=== PATIENT | male | born 1930 | race Caucasian/White ===

== ENCOUNTER 2018-07-25 05:08 | Inpatient (IN) | payer MEDICARE ==
--- NOTE | 2018-07-22 11:24 | Diagnostic Imaging Report ---
EXAMINATION: CHEST 2 VIEWS INDICATION: Pre-op COMPARISON: None FINDINGS: TUBES and LINES: None. LUNGS: Low lung volumes which decreases sensitivity and specificity for pathology. There is perihilar fullness and indistinctness of the pulmonary vasculature, left greater than right. No evidence of lobar consolidation. PLEURA: No pleural effusion or pneumothorax. HEART AND MEDIASTINUM: The cardiomediastinal silhouette is unremarkable. Status post CABG. BONES AND SOFT TISSUES: No acute osseous abnormality. Partially seen cervical spine fixation hardware. Status post median sternotomy. UPPER ABDOMEN: No free air under the diaphragm. IMPRESSION: Low lung volumes with possible mild pulmonary interstitial edema, asymmetric to the left. Signed by: Dr. Nemo Alaniz MD on 07/22/2018 11:21 AM
[2018-07-22 11:36] LABS: BASOPHILS # (AUTO) 0.1 (0.0-0.1); BASOPHILS % 0.6 % (0.0-1.0); EOSINOPHILS # (AUTO) 0.3 (0.0-0.4); EOSINOPHILS % 3.2 % (0.0-6.0); HEMATOCRIT 41.2 % (38.2-49.6); HEMOGLOBIN 13.6 g/dL (14.0-18.0); LYMPHOCYTES # (AUTO) 2.5 (1.0-3.2); LYMPHOCYTES % 26.2 % (18.0-39.1); MEAN CORPUSCULAR HEMOGLOBIN 31.4 pg (28-32); MEAN CORPUSCULAR VOLUME 95.2 fL (81-99); MONOCYTES # (AUTO) 0.9 (0.2-0.8); MONOCYTES % 9.4 % (4.4-11.3); NEUTROPHILS # (AUTO) 5.7 (2.1-6.9); NEUTROPHILS % 60.3 % (38.7-80.0); PLATELET COUNT 212 x10e3/uL (140-360); RED BLOOD COUNT 4.33 x10e6/uL (4.3-5.7); RED CELL DISTRIBUTION WIDTH 14.4 % (11.7-14.4)
[2018-07-22 11:50] LABS: ANION GAP 16.3 mmol/L (8-16); BLOOD UREA NITROGEN 19 mg/dL (7-26); BUN/CREATININE RATIO 21 (6-25); CALCIUM 9.8 mg/dL (8.4-10.2); CARBON DIOXIDE 31 mmol/L (22-29); CHLORIDE 100 mmol/L (98-107); CREATININE, SERUM 0.91 mg/dL (0.72-1.25); EST GLOMERULAR FILTRATION RATE > 60 ML/MIN (60-); GLUCOSE 76 mg/dL (74-118); POTASSIUM 5.3 mmol/L (3.5-5.1); SODIUM 142 mmol/L (136-145)
[~2018-07-25] VITALS: Ht 177.8 cm; Wt 102.6 kg
[~2018-07-25 05:08] MED LIST: ADVIL200 MG PO; ALEVE220 MG PO; AMLODIPINE BESYL5 MG PO; ASPIR 8181 MG PO; CALTRATE 600 W1 EACH PO; CENTRUM SILVER1 EAC2 PO; CENTRUM SILVER1 EAC3 PO; CLONAZEPAM0.5 MG PO; CLONAZEPAM1 MG PO; CYMBALTA30 MG PO; ECOTRIN325 MG PO; EFFEXOR XR150 MG PO; FISH OIL PO; LASIX20 MG PO; LIPITOR40 MG PO; LYRICA200 MG PO; MILK OF MA2400 MG/10 PO; MULTIVITAMINS1 EAC8 PO; NORVASC5 MG PO; TURMERIC1 GM PO; TYLENOL PO; ULTRAM 50MG50 MG PO; VENLAFAXINE HCL75 MG PO; VITAMIN B-121000 MCG PO; hydrocodone
--- OUTSIDE RECORDS SUMMARY | 2018-07-25 05:11 | XMS REPORT ---
Author Author [facility] Address Unknown Phone Unavailable Care Team Providers Care Vp Software Name Role Phone ASAD LAMBERT Unavailable Unavailable Problems This patient has no known problems. Allergies, Adverse Reactions, Alerts This patient has no known allergies or adverse reactions. Medications This patient has no known medications. Results Test Description Test Time Test Comments Text Results Atomic Results Result Comments CHEST 2 VIEWS 2018-07-22 11:19:00 [place] [address] Patient Name: ABIGAIL PRITCHETT MR #: [id number] : 1930 Age/Sex: 87/M Req #: [id number] Adm Physician: Ordered by: ASAD LAMBERT MD Report #: [id number] Location: OR Room/Bed: Procedure: [id number] DX/CHEST 2 VIEWS Exam Date: 07/22/18 Exam Time: 1045 REPORT STATUS: Signed EXAMINATION: CHEST 2 VIEWS INDICATION: Pre-op COMPARISON: None FINDINGS: TUBES and LINES: None. LUNGS: Low lung volumes which decreases sensitivity and specificity for pathology. There is perihilar fullness and indistinctness of the pulmonary vasculature, left greater than right. No evidence of lobar consolidation. PLEURA: No pleural effusion or pneumothorax. HEART AND MEDIASTINUM: The cardiomediastinal silhouette is unremarkable. Status post CABG. BONES AND SOFT TISSUES: No acute osseous abnormality. Partially seen cervical spine fixation hardware. Status post median sternotomy. UPPER ABDOMEN: No free air under the diaphragm. IMPRESSION: Low lung volumes with possible mild pulmonary interstitial edema, asymmetric to the left. Signed by: Dr. Hansel Park MD on 07/22/2018 11:21 AM Dictated By: HANSEL PARK MD 20 Transcribed By: KIRK on 07/22/181120 COPY TO: ASAD LAMBERT MD CHEST 2 VIEWS [place] [address] Patient Name: ABIGAIL PRITCHETT MR #: [id number] : 1930 Age/Sex: 86/M Req #: [id number] Adm Physician: Ordered by: ASAD LAMBERT MD Report #: [id number] Location: OR Room/Bed: Procedure: [id number] DX/CHEST 2 VIEWS Exam Date: 04/09/17 Exam Time: 1135 REPORT STATUS: Signed PROCEDURE: Frontal and lateral views of the chest. COMPARISON: Chest x-ray 12/13/2008. INDICATIONS: PRE-OP, HIP INJECTIONE. DENIES LUNG COMPLAINTS FINDINGS: Lines/tubes: Medium sternotomy wires and mediastinal clips are unchanged. Lungs: Lungs are hypoinflated with bibasilar atelectasis. There is no evidence of pneumonia or pulmonary edema. Pleura: There is no pleural effusion or pneumothorax. Heart and mediastinum: The heart and the mediastinum are normal. Bones: No acute bony abnormality. Anterior cervical fusion plate is present. IMPRESSION: Hypoinflated lungs with bibasilar atelectasis. No acute cardiopulmonary disease. Dictated by: Radha Peace M.D. on 04/09/2017 at 13:01 Electronically approved by: Radha Peace M.D. on 04/09/2017 at 13:01 Dictated By: RADHA PEACE MD 1301 Transcribed By: CORRINE on 04/09/17 1301 COPY TO: ASAD LAMBERT MD
[2018-07-25] MEDS ORDERED: CELECOXIB 200 MG CAP ONE (06:21)
[2018-07-25] MEDS ORDERED: DEXAMETHASONE SOD PHOS 10 MG/1 ML VIAL ONE (06:21)
[2018-07-25] MEDS ORDERED: GABAPENTIN 300 MG CAP ONE (06:22)
[2018-07-25] MEDS ORDERED: TRANEXAMIC ACID 1,000 MG/10 ML ML ONE (06:43)
[2018-07-25] MEDS ORDERED: BACITRACIN 50,000 UNIT VIAL ONE (06:43)
[2018-07-25] MEDS ORDERED: SODIUM CHLORIDE 0.9% 500ML 500 ML ONE (06:58)
[2018-07-25] MEDS ORDERED: VANCOMYCIN HCL 500 MG ONE (06:58)
[2018-07-25] MEDS ORDERED: ROPIVACAINE INJ ONE (07:00)
[2018-07-25] MEDS ORDERED: EPINEPHRINE HCL INJ ONE (07:00)
[2018-07-25] MEDS ORDERED: CLONIDINE HCL INJ ONE (07:00)
[2018-07-25] MEDS ORDERED: [UNRECOGNIZED DRUG - OTHER] INJ ONE (07:00)
--- NOTE | 2018-07-25 07:10 | NUR ---
SPIRITUAL CARE - Pre-Surgery Assessment: Pt in bed. Pt's and son at bedside. Pt reported supportive attention from family and friends. Intervention: I provided pastoral presence, hospitality, sympathetic listening, and prayer. I acquainted pt with availability of electro plater while hospitalized. Outcome: Pt expressed appreciation for visit. No need for follow up indicated at this time. ROSALIE DUNNE Compensation Adjuster Spiritual Care Department O: [phone] Pager: [phone] ([phone] number calling from)
[2018-07-25] MEDS ORDERED: BUPIVACAINE 7.5MG/ML /DEXTROSE 82.5MG/ML 2 ML AMP INJ ONE (07:39)
[2018-07-25] MEDS ORDERED: VANCOMYCIN 1GM/NS 250 ML 250 ML ONE (08:11)
[2018-07-25] MEDS: SODIUM CHLORIDE 0.9% 1000ML 1,000 ML IV SCH ×2 (09:31→19:31)
[2018-07-25] MEDS ORDERED: HYDROCODONE/APAP 7.5MG-325MG 1 EA TAB PO PRN (09:45)
[2018-07-25] MEDS ORDERED: PROMETHAZINE HCL (IM) 25 MG/ML VIAL IM PRN (09:45)
[2018-07-25] MEDS ORDERED: HYDROCODONE/APAP 5MG-325MG TAB PO PRN (09:45)
[2018-07-25] MEDS ORDERED: ONDANSETRON HCL INJ 2 MG/ML VIAL IV PRN (09:45)
[2018-07-25] MEDS ORDERED: DOCUSATE SODIUM 100 MG CAP PO PRN (09:45)
[2018-07-25] MEDS ORDERED: ACETAMINOPHEN 650 MG SUPP PR PRN (09:45)
[2018-07-25] MEDS ORDERED: DIPHENHYDRAMINE HCL INJ 50 MG/ML VIAL IM/IV PRN (09:45)
[2018-07-25 11:05] VITALS: BP 111/67
--- NOTE | 2018-07-25 11:15 | NUR ---
received to rm aaox3 no distress noted, aquacel to left hip c/d/i, ivf infusing to l hand 20g no ss of infiltration noted,no other co voiced call light in reach will continue ot monitor
--- NOTE | 2018-07-25 12:06 | Diagnostic Imaging Report ---
AP pelvis radiograph-single view History: Postoperative status post left hip surgery. Findings: Status post total left hip arthroplasty with prosthetic components in anatomic alignment. Overlying subcutaneous emphysema and surgical rut, consistent with recent postsurgical changes. Postsurgical changes related to prior right total hip arthroplasty. Heterotopic calcification is noted. Alignment is unremarkable. No evidence of acute displaced fracture. IMPRESSION: Immediate post surgical changes status post left total hip arthroplasty in anatomic position. Postsurgical changes related to prior right total hip arthroplasty. Signed by: Dr. Nemo Alaniz MD on 07/25/2018 12:03 PM
[2018-07-25 12:13] VITALS: BP 111/67
--- NOTE | 2018-07-25 12:24 | Operative Report ---
DATE OF PROCEDURE: July 25, 2018 [employer] PROJECT MANAGER: Osbaldo Novoa PA-C The patient was brought to the operating room for induction of anesthesia. Throughout this case, my PA's assistance was necessary for retraction of soft tissue and positioning of the extremity. This allows for efficient and technically successful execution of the operation and is considered medically necessary. PREOPERATIVE DIAGNOSIS: Osteoarthritis, left hip. POSTOPERATIVE DIAGNOSIS: Osteoarthritis, left hip. PROCEDURE: Left total hip arthroplasty. 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 We have had multiple discussion in the office about his treatment options. He feels that his left hip is so severe that he is willing to undergo a total hip replacement at his age and medical condition. The risks and benefits have been explained. The other concerns about his mobility have been stressed. Both he and his family state they understand and wish to proceed. DESCRIPTION OF PROCEDURE: The patient was brought to the operating room. He received prophylactic antibiotics and tranexamic acid in the holding area. A spinal anesthetic was attempted. This was unsuccessful. He was placed under general anesthetic and positioned in the right lateral decubitus position. His left hip was prepped and draped in a sterile manner. A preoperative time-out was performed. A posterior approach was made to the left hip. Care was taken to avoid injury to the sciatic nerve. Hemostasis was obtained with electrocautery. A deep self-retaining Charnley retractor was placed. The posterior capsule was released. Hemostasis was further obtained with electrocautery. The capsule was noted to be thickened. An oscillating saw was used to resect the femoral head. Complete loss of articular cartilage was noted. Acetabular retractors were carefully placed. Additional soft tissue releases were necessary to obtain adequate exposure and visualization of the socket. The socket was then sequentially reamed to 57 mm. This created bleeding hemispherical cancellous bone. Small subchondral cysts were debrided with a curved curette. The hip had been thoroughly irrigated on multiple occasions with a shower-tip pulsatile lavage. A [employer] OsseoTi socket was impacted into place. This had a 58-mm diameter. Good fixation was obtained. Fixation was augmented with a single 20-mm cancellous screw placed into the ilium. A highly crosslinked polyethylene liner with a 36-mm inner diameter was then seated into place. Care was taken to make sure that there was no evidence of soft tissue interposition. The socket was packed with a moistly soaked lap sponge. A portion of a 100-mL premixed pericapsular OTILIO injection was placed around the surrounding soft tissue. The proximal femur was exposed. A box cutting osteotome and taper pin reamer were used to establish entry to the femoral canal. The Taperloc broaches were impacted into place. A number 9 stem had good canal fill and rotational stability. Trial reductions were performed. A standard neck and 36-mm head provided appropriate religion of limb length, stability, and soft tissue balancing. The trial implants were removed. The hip was further irrigated with a pulsatile lavage. The stem was seated and the ceramic 36-mm head with a standard neck was seated onto the clean and dry stem. A final reduction was performed. The hip was put through a range of motion and noted to have appropriate stability. The posterior capsule was reapproximated with number 2 Ethibond. The piriformis was reapproximated with number 2 Ethibond. The tensor fascia and gluteal fascia were closed with number 2 Ethibond. The remainder of the pericapsular injection was placed into the subcutaneous adipose. The skin was closed with subcuticular Vicryl and rut. A sterile Aquacel bandage was applied. The patient was returned to the supine position and extubated. Estimated blood loss was about 75 mL. At the end of the procedure, all needle and sponge counts were correct. Job#: [id number] DONNY
[2018-07-25] MEDS: ACETAMINOPHEN 1000 MG/100 ML IV SCH ×2 (12:50→17:40)
--- NOTE | 2018-07-25 13:14 | NUR ---
CM SPOKE TO LISETH MERAZ REGARDING PATIENT PLAN OF CARE AND DISCHARGE PLAN. RN CALLED DR. LAMBERT TO CLARIFY WITH CM TO WITNESS. DR. LAMBERT WANTS A COMPLETE PT EVAL FOR RECOMMENDATIONS. PENDING PT EVAL FOR PLAN OF CARE. PHYSICAL THERAPY NOTIFIED. CM TO FOLLOW UP.
[2018-07-25] MEDS ORDERED: ULTRAM50 MG PO (13:33)
[2018-07-25] MEDS ORDERED: CLONAZEPAM 1 MG TAB PO SCH (14:00)
--- NOTE | 2018-07-25 14:25 | NUR ---
CASE MANAGEMENT INITIAL ASSESSMENT Soil Tester to bedside to discuss plan of care with patient/family. CM/SW role and care transitions discussed. Anticipated discharge plan discussed along with duration of care. CM discussed patients right to make decisions in care. CM/SW work hours given. Patient lives: PATIENT LIVES IN [address] [place] [address] Admit/Transfer: OR POA/Emergency contact: POONAM PRITCHETT: [phone] Current/Previous Home Health: PCP/Follow-up Care: DR. JAMILA SNYDER Current/Previous DME: ROLLATOR, SHOWER CHAIR Other Services: NONE AT THIS TIME Employment Status: RETIRED Areas of Concerns: MOBILITY Referral Needs: PATIENT GOING HOME WITH HOME HEALTH AND DME SET UP BY DR. LAMBERT'S OFFICE. CM CALLED AND CONFIRMED THE FOLLOWING ARRANGEMENT: HOME HEALTH: [facility] (P) [phone] (F) [phone] CM CALLED AND SPOKE TO KIM[facility]. PATIENT IS CONFIRMED TO START SERVICES ON Wednesday07/27/18. PATIENT FAMILY CONTACTED AND AWARE DME: [facility] (P) [phone] (F) [phone] CM CALLED AND SPOKE TO [facility]. PATIENT EQUIPMENT DELIVERED AND PATIENT TOLD TO BRING WALKER TO HOSPITAL. PATIENT CONFIRMED DELIVER ON WALKER AND 3-IN-1 COMMODE. WALKER AT BEDSIDE. Education Needs: NONE IMM/VALENTIN given and signed (if applicable): IMM Goal for discharge: DISCHARGE HOME WITH [facility] AND DME (WALKER; 3-IN-1 COMMODE) CM left business card at the bedside with contact information. Name and number was also written on the patients whiteboard. Patient verbalized understanding of discussion. CM will follow-up with ongoing discharge and transition of care needs.
[2018-07-25] MEDS ORDERED: FENTANYL CITRATE/PF 100MCG/2 ML INJ ONE (14:55)
[2018-07-25] MEDS ORDERED: MIDAZOLAM HCL 2 MG/2 ML VIAL ONE (14:55)
[2018-07-25] MEDS ORDERED: PROPOFOL IV EMULSION 10 MG/ML 20 ML VIAL ONE (15:11)
[2018-07-25] MEDS ORDERED: ONDANSETRON HCL INJ 2 MG/ML VIAL ONE (15:11)
[2018-07-25] MEDS ORDERED: GLYCOPYRROLATE INJ 1MG/ 5 ML SYR ONE (15:11)
[2018-07-25] MEDS ORDERED: NEOSTIGMINE 5 MG/5ML SYR ONE (15:11)
[2018-07-25] MEDS ORDERED: DEXAMETHASONE SOD PHOS INJ 4 MG/ML VIAL ONE (15:11)
[2018-07-25] MEDS ORDERED: ROCURONIUM BROMIDE 10 MG/ML 5ML VIAL ONE (15:11)
[2018-07-25] MEDS ORDERED: LIDOCAINE HCL 2% LOCAL INJ 5 ML SDV VIAL INJ ONE (15:11)
[2018-07-25] MEDS ORDERED: ACETAMINOPHEN 1000 MG/100 ML IV ONE (15:11)
[2018-07-25] MEDS ORDERED: SEVOFLURANE INHAL SOLN 250 ML PEN BTL ONE (15:11)
--- NOTE | 2018-07-25 15:30 | NUR ---
pt ambulated 20ft with physical therapy tolerated well
[2018-07-25 15:54] VITALS: BP 149/73
[2018-07-25] MEDS: ASPIRIN 325 MG TAB PO SCH (16:19)
[2018-07-25] MEDS: CELECOXIB 200 MG CAP PO SCH (16:19)
[2018-07-25] MEDS: VENLAFAXINE HCL 75 MG TAB PO SCH (16:19)
[2018-07-25] MEDS ORDERED: CELECOXIB 100 MG CAP PO SCH (17:00)
[2018-07-25] MEDS: VANCOMYCIN 1GM/NS 250 ML 250 ML IV SCH (18:10)
[2018-07-25 20:00] VITALS: BP 119/57
--- NOTE | 2018-07-25 20:03 | NUR ---
Received change of shift report from AM nurse. Walking rounds completed.
[2018-07-25] MEDS: CLONAZEPAM 1 MG TAB PO SCH (21:00)
[2018-07-25] MEDS ORDERED: ZOLPIDEM TARTRATE 5 MG TAB PO PRN (21:00)
[2018-07-26] VITALS: BP 144/60
--- NOTE | 2018-07-26 | NUR ---
Patient c/o not being comfortable. Release some of pressure off straps. HOB elevated.
[2018-07-26 04:00] VITALS: BP 127/74
--- NOTE | 2018-07-26 04:01 | NUR ---
Patient resting quitly at this time. Continue monitor.
[2018-07-26] MEDS: ACETAMINOPHEN 1000 MG/100 ML IV SCH ×2 (05:27)
[2018-07-26] MEDS: VANCOMYCIN 1GM/NS 250 ML 250 ML IV SCH (05:28)
--- NOTE | 2018-07-26 05:57 | Consultation ---
DATE OF CONSULTATION: REASON FOR CONSULTATION: Postop medical management. HISTORY OF PRESENT ILLNESS: The patient is an 87-year-old gentleman status post left hip arthroplasty is doing well postoperatively with minimal pain. REVIEW OF SYSTEMS: Denies any chest pain, fever, chills, headache, nausea, vomiting, shortness of breath. PAST MEDICAL HISTORY: Significant for hypertension and anxiety. MEDICATIONS: See MAR. ALLERGIES: SEE MAR. SOCIAL HISTORY: Nonsmoker, nondrinker. FAMILY HISTORY: Noncontributory. PHYSICAL EXAMINATION VITALS: 98.6, blood pressure 145/76, pulse 84, sats 98%. GENERAL: No apparent distress. NECK: Supple. CARDIOVASCULAR: Regular rate and rhythm. LUNGS: Clear to auscultation bilaterally. ABDOMEN: Good bowel sounds. Soft and nontender. EXTREMITIES: No clubbing or cyanosis. NEUROLOGIC: Nonfocal. ASSESSMENT AND PLAN 1. Status post left hip pressure: Continue with physical therapy. 2. Left hip pain: Will continue with pain medication. 3. Hypertension: Continue with his home medication. Monitor his blood pressure. 4. Anxiety: Continue with his home medication. 5. Anemia: Check CBC. Please see hospital chart for full details. Job#: [id number] AL
[2018-07-26 05:59] LABS: HEMATOCRIT 32.5 % (38.2-49.6); HEMOGLOBIN 10.7 g/dL (14.0-18.0)
--- NOTE | 2018-07-26 07:16 | NUR ---
Walking rounds done and report received from night nurse. Patient is awake and alert x3 in NAD. POC discussed. AM assessment done. Patient instructed to call for assistance as needed and verbalized understanding. Call brown within reach.
[2018-07-26 08:16] VITALS: BP 119/71
[2018-07-26] MEDS ORDERED: MULTIVITAMINS/MINERALS TAB PO SCH (09:00)
[2018-07-26] MEDS ORDERED: NON-FORMULARY MEDICATION (Calcium Carbonate/Vitamin D3 (Caltrate 600 W-D Tablet) 1 TAB) PO SCH (09:00)
[2018-07-26] MEDS ORDERED: FUROSEMIDE 20 MG TAB PO SCH (09:00)
[2018-07-26] MEDS ORDERED: OYST-CAL-D 500MG TABLET PO SCH (09:00)
[2018-07-26] MEDS ORDERED: AMLODIPINE BESYLATE 5 MG TAB PO SCH (09:00)
[2018-07-26] MEDS ORDERED: MAGNESIUM HYDROXIDE 30 ML UDC PO SCH (09:00)
[2018-07-26] MEDS: ASPIRIN 325 MG TAB PO SCH (09:21)
[2018-07-26] MEDS: CELECOXIB 200 MG CAP PO SCH (09:21)
[2018-07-26] MEDS: CLONAZEPAM 1 MG TAB PO SCH (09:21)
[2018-07-26] MEDS: VENLAFAXINE HCL 75 MG TAB PO SCH (09:22)
[2018-07-26] MEDS: SODIUM CHLORIDE 0.9% 1000ML 1,000 ML IV SCH (09:34)
[2018-07-26] MEDS ORDERED: ACETAMINOPHEN 1000 MG/100 ML IV PRN (09:45)
--- NOTE | 2018-07-26 12:00 | NUR ---
CM SPOKE TO PATIENT AND PATIENT AT BEDSIDE. PATIENT STATES HE WOULD LIKE TO GO HOME WITH HOME HEALTH. PATIENT STATES HE HAS HELP AT HOME AND AND MOBILITY DEVICES THAT WILL HELP HIM GET AROUND. PATIENT DRESSED AND STATES "I AM READY TO GO HOME". CM READ PATIENT HIS RIGHT TO CHOICE AND GIVEN RISKS IF HE GOES HOME UNSTEADY. PATIENT VERBALLY UNDERSTANDS AND STATES HE WOULD STILL LIKE TO GO HOME.
[2018-07-26 12:54] VITALS: BP 153/73
[2018-07-26] MEDS ORDERED: ASPIRIN325 MG PO (13:31)
[2018-07-26] MEDS ORDERED: NORCO 7.5-3251 EACH PO (14:07)
--- NOTE | 2018-07-26 14:46 | NUR ---
Patient was discharged home in stable condition with written instructions and prescription. Both patient and spouse verbalized understanding. IC dc'd at 1400 with cath intact and small dressing applied.
== END 2018-07-26 14:46 | disposition home health service (06) | DRG 470 ==
LOC: OR 05:08 → PACU V 09:33 → MED/SURG 11:11
PROVIDERS: ADMIT Specialist; ATTEND Specialist
PROC: 0SRB04Z Replacement of Left Hip Joint with Ceramic on Polyethylene Synthetic Substitute, Open Approach (ICD-10-PCS; principal; 2018-07-25 07:30)
DX: M16.0 Bilateral primary osteoarthritis of hip (principal); F41.9 Anxiety disorder, unspecified; D64.9 Anemia, unspecified; M17.0 Bilateral primary osteoarthritis of knee; E78.5 Hyperlipidemia, unspecified; J45.909 Unspecified asthma, uncomplicated; Z96.653 Presence of artificial knee joint, bilateral; Z96.641 Presence of right artificial hip joint; I11.0 Hypertensive heart disease with heart failure; I50.9 Heart failure, unspecified
CPT/HCPCS: 36415; 71046; 72170; 80048; 84132; 85014; 85018; 85025; 86850; 86900; 86920; 93005; 97139; C1713; J0171; J1100; J2001; J2250; J2405; J2795; J3370; J7030; J7040

== ENCOUNTER 2018-08-10 09:18 | Outpatient (RCR) | payer MEDICARE ==
[~2018-08-10 09:18] MED LIST changes: +ASPIRIN325 MG PO; +NORCO 7.5-3251 EACH PO; +ULTRAM50 MG PO
== END 2018-08-11 ==
LOC: WCC 09:18
PROVIDERS: ATTEND Internal Medicine Infectious Disease
DX: T81.32XA Disruption of internal operation (surgical) wound, not elsewhere classified, initial encounter (principal); T81.89XA Other complications of procedures, not elsewhere classified, initial encounter; I10 Essential (primary) hypertension; I51.9 Heart disease, unspecified; E78.01 Familial hypercholesterolemia; J45.909 Unspecified asthma, uncomplicated
CPT/HCPCS: 87071; 87075; 87186; 87205

== ENCOUNTER 2018-08-12 12:52 | Outpatient (RCR) | payer MEDICARE ==
[2018-08-16] MEDS ORDERED: FENTANYL CITRATE/PF 100MCG/2 ML INJ ONE (13:55)
[2018-08-16] MEDS ORDERED: HYDROMORPHONE 2MG/ML 2 MG/ML ML ONE (15:39)
[2018-08-18] MEDS ORDERED: TYLENOL WITH C1 EACH PO (15:07)
== END 2018-09-08 ==
LOC: WCC 12:52
PROVIDERS: ATTEND Internal Medicine Infectious Disease
DX: T81.32XA Disruption of internal operation (surgical) wound, not elsewhere classified, initial encounter (principal); T81.89XA Other complications of procedures, not elsewhere classified, initial encounter; A49.01 Methicillin susceptible Staphylococcus aureus infection, unspecified site; E78.01 Familial hypercholesterolemia; I10 Essential (primary) hypertension; I51.9 Heart disease, unspecified; J45.909 Unspecified asthma, uncomplicated
CPT/HCPCS: 97605; J1170

== ENCOUNTER 2018-08-16 09:14 | Inpatient (IN) | payer MEDICARE ==
[~2018-08-16] VITALS: Ht 177.8 cm; Wt 96.6 kg
[2018-08-16] MEDS: OYST-CAL-D 500MG TABLET PO SCH (09:00)
[2018-08-16] MEDS ORDERED: VANCOMYCIN 1GM/NS 250 ML 250 ML ONE (09:52)
[2018-08-16] MEDS ORDERED: TRANEXAMIC ACID 1,000 MG/10 ML ML ONE (11:36)
[2018-08-16] MEDS ORDERED: BACITRACIN 50,000 UNIT VIAL ONE (11:36)
[2018-08-16] MEDS ORDERED: DOCUSATE SODIUM 100 MG CAP PO PRN (13:30)
[2018-08-16] MEDS ORDERED: PROMETHAZINE HCL (IM) 25 MG/ML VIAL IM PRN (13:30)
[2018-08-16] MEDS ORDERED: ONDANSETRON HCL INJ 2MG/ML 2ML 2 MG/ML VIAL IV PRN (13:30)
[2018-08-16] MEDS ORDERED: DIPHENHYDRAMINE HCL INJ 50 MG/ML VIAL IM/IV PRN (13:30)
[2018-08-16] MEDS ORDERED: ACETAMINOPHEN 650 MG SUPP PR PRN (13:30)
[2018-08-16] MEDS ORDERED: HYDROCODONE/APAP 5MG-325MG TAB PO PRN (13:30)
[2018-08-16] MEDS ORDERED: KETOROLAC TROMETHAMINE 30 MG/ML VIAL IV PRN (13:30)
[2018-08-16 14:56] LABS: BLOOD UREA NITROGEN 15 mg/dL (7-26); BUN/CREATININE RATIO 18 (6-25); CREATININE, SERUM 0.82 mg/dL (0.72-1.25); EST GLOMERULAR FILTRATION RATE > 60 ML/MIN (60-)
--- NOTE | 2018-08-16 16:48 | NUR ---
Informed Dr. Denis and Dr. Le of consults
[2018-08-16] MEDS ORDERED: CELECOXIB 100 MG CAP PO SCH (17:00)
[2018-08-16] MEDS: ASPIRIN 325 MG TAB PO SCH (17:17)
[2018-08-16] MEDS: SODIUM CHLORIDE 0.9% 1000ML 1,000 ML IV SCH ×2 (17:17→23:28)
[2018-08-16] MEDS: ACETAMINOPHEN 1000 MG/100 ML IV SCH ×2 (17:18→23:45)
[2018-08-16 17:22] VITALS: BP 142/71
--- NOTE | 2018-08-16 17:30 | NUR ---
Patient A/O X3, even respirations on 2LNC. Last BM this morning, bowel sounds active. Right hand 20 gauge IV with NS @ 100 MLS/HR. Left hip dressing dry and intact, Hemovac at left hip. 1+ Left lower extremity edema pitting. Call light in reach, will continue to monitor. Urinal at bedside. Will continue to monitor. Call light in reach.
[2018-08-16] MEDS ORDERED: PROPOFOL IV EMULSION 10 MG/ML 20 ML VIAL ONE (17:45)
[2018-08-16] MEDS ORDERED: LIDOCAINE HCL 2% LOCAL INJ 5 ML SDV VIAL INJ ONE (17:45)
[2018-08-16 18:11] VITALS: BP 142/71
[2018-08-16 18:22] VITALS: BP 142/71
[2018-08-16] MEDS ORDERED: FENTANYL CITRATE/PF 100MCG/2 ML INJ ONE (18:28)
--- NOTE | 2018-08-16 19:54 | NUR ---
SPOKE TO DR. GUZMAN AT THIS TIME REGARDING PT HOME MEDS. NEW ORDER RCV TO CONTINUE HOME MEDS AND LABS IN THE MORNING.
[2018-08-16 20:00] VITALS: BP 103/55
--- NOTE | 2018-08-16 20:21 | Diagnostic Imaging Report ---
EXAMINATION: CHEST XRAY LINE PLACEMENT INDICATION: PICC line placement ^PICC LINE PLACEMENT ^[id number] ^2004 COMPARISON: None FINDINGS: TUBES and LINES: Right-sided peripherally inserted central venous catheter with distal tip at the right atrial/superior vena cava junction. LUNGS: Perihilar peribronchial hazy opacity could be due to bronchitis. PLEURA: No pleural effusion or pneumothorax. HEART AND MEDIASTINUM: Postsurgical change to the heart. BONES AND SOFT TISSUES: No acute osseous lesion. Soft tissues are unremarkable. UPPER ABDOMEN: No free air under the diaphragm. IMPRESSION: Right-sided peripherally inserted central venous catheter with distal tip at the right atrial/superior vena cava junction. Perihilar peribronchial hazy opacity could be due to bronchitis. Signed by: Dr. Rob Duffy M.D. on 08/16/2018 8:17 PM
[2018-08-16] MEDS ORDERED: ZOLPIDEM TARTRATE 5 MG TAB PO PRN (21:00)
[2018-08-16] MEDS: AMLODIPINE BESYLATE 5 MG TAB PO SCH (21:15)
[2018-08-16] MEDS ORDERED: TRAMADOL HCL 50 MG TAB PO PRN (21:15)
[2018-08-16] MEDS ORDERED: IBUPROFEN 200 MG TAB PO PRN (21:15)
[2018-08-16] MEDS: CLONAZEPAM 1 MG TAB PO SCH (21:57)
[2018-08-16] MEDS: VANCOMYCIN 1GM/NS 250 ML 250 ML IV SCH (21:57)
[2018-08-16] MEDS: PREGABALIN 50 MG CAP PO SCH (21:57)
[2018-08-17] VITALS (8 sets, daily range): BP systolic 108–146; BP diastolic 52–88
[2018-08-17] MEDS: HYDROCODONE/APAP 7.5MG-325MG 1 EA TAB PO PRN ×2 (05:39→09:48)
[2018-08-17] MEDS: ACETAMINOPHEN 1000 MG/100 ML IV SCH ×2 (05:39→12:20)
--- NOTE | 2018-08-17 05:40 | NUR ---
CHANGED DRESSING TO LEFT HIP. MEDICATED PRN FOR PAIN.
[2018-08-17 05:56] LABS: BASOPHILS % 0.3 % (0.0-1.0); EOSINOPHILS # (AUTO) 0.3 (0.0-0.4); EOSINOPHILS % 4.2 % (0.0-6.0); HEMATOCRIT 31.4 % (38.2-49.6); HEMOGLOBIN 10.1 g/dL (14.0-18.0); LYMPHOCYTES % 12.4 % (18.0-39.1); MEAN CORPUSCULAR HEMOGLOBIN 30.7 pg (28-32); MEAN CORPUSCULAR HGB CONC 32.2 g/dL (31-35); MEAN CORPUSCULAR VOLUME 95.4 fL (81-99); MONOCYTES # (AUTO) 0.5 (0.2-0.8); MONOCYTES % 5.8 % (4.4-11.3); NEUTROPHILS % 76.8 % (38.7-80.0); PLATELET COUNT 186 x10e3/uL (140-360); RED BLOOD COUNT 3.29 x10e6/uL (4.3-5.7); RED CELL DISTRIBUTION WIDTH 15.1 % (11.7-14.4)
[2018-08-17 06:18] LABS: ANION GAP 10.9 mmol/L (8-16); BLOOD UREA NITROGEN 14 mg/dL (7-26); BUN/CREATININE RATIO 20 (6-25); CALCIUM 8.4 mg/dL (8.4-10.2); CARBON DIOXIDE 29 mmol/L (22-29); CHLORIDE 105 mmol/L (98-107); EST GLOMERULAR FILTRATION RATE > 60 ML/MIN (60-); GLUCOSE 100 mg/dL (74-118); POTASSIUM 3.9 mmol/L (3.5-5.1); SODIUM 141 mmol/L (136-145)
[2018-08-17] MEDS: TUMERIC PO SCH (09:00)
[2018-08-17] MEDS ORDERED: POTASSIUM CHLORIDE 10MEQ EA PO ONE (09:00)
[2018-08-17] MEDS: VENLAFAXINE HCL 75 MG TAB PO SCH ×2 (09:48→18:16)
[2018-08-17] MEDS: OYST-CAL-D 500MG TABLET PO SCH (09:48)
[2018-08-17] MEDS: ASPIRIN 325 MG TAB PO SCH ×2 (09:48→18:16)
[2018-08-17] MEDS: PREGABALIN 50 MG CAP PO SCH ×3 (09:48→20:46)
[2018-08-17] MEDS: OCUVITE PRESERVISION TABLET PO SCH (09:48)
[2018-08-17] MEDS: CLONAZEPAM 1 MG TAB PO SCH ×2 (09:48→20:46)
[2018-08-17] MEDS: AMLODIPINE BESYLATE 5 MG TAB PO SCH (09:48)
[2018-08-17] MEDS: VANCOMYCIN 1GM/NS 250 ML 250 ML IV SCH (09:48)
[2018-08-17] MEDS: FUROSEMIDE 20 MG TAB PO SCH (09:48)
[2018-08-17] MEDS: MAGNESIUM HYDROXIDE 30 ML UDC PO SCH (09:48)
--- NOTE | 2018-08-17 09:48 | NUR ---
assessment complete no distress noted, updated on poc voiced understanding, hemovac to left hip intact with serous drainage noted, dsg to l hip c/d/i, r picc noted, co pain 04/20 medicated with prn meds no other co voiced call light in reach will continue to monitor
[2018-08-17] MEDS: CELECOXIB 200 MG CAP PO SCH ×2 (09:49→18:16)
--- NOTE | 2018-08-17 11:00 | Operative Report ---
DATE OF PROCEDURE: August 16, 2018 STEAM BOX HAND: Osbaldo Novoa PA-C The patient was brought to the operating room for induction of anesthesia. Throughout this case, my PA's assistance was necessary for retraction of soft tissue and positioning of the extremity. This allows for efficient and technically successful execution of the operation and is considered medically necessary. 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 PROCEDURE: Irrigation and sharp debridement, left hip. INDICATIONS: The patient is an 87-year-old medically frail individual who had severe arthritis of his left hip. His mobility was severely limited and, despite his medical frailty, he wished strongly to proceed with definitive intervention. The risks and benefits of a hip replacement were thoroughly discussed on a number of occasions. We proceeded with the surgery, and he has subsequently had persistent drainage. We have tried to treat this conservatively for about 5 to 7 days. The drainage has persisted, and I have recommended an open debridement, placement of drains and long-term IV antibiotics. He states he understands and agrees to proceed. DESCRIPTION OF PROCEDURE: The patient was brought to the operating room and placed under general anesthetic. He was positioned in the right lateral decubitus position. His left hip was prepped and draped in a sterile manner. A preoperative time out was performed. There was an inferior sinus that was actively draining. The incision was opened. There was a superficial fluid collection that extended down the lateral thigh. The tensor fascia repair and gluteal fascial repair remained intact. All of the inflammatory tissue was excised with a surgical knife and electrocauterizer. Hemostasis was obtained with an electrocauterizer. The previous sutures repairing the tensor and gluteal fascia were removed. The deep aspect of the hip was thoroughly inspected. I did not see any suspicious-looking tissue. All of this area was scrubbed with Betadine and thoroughly irrigated with copious amounts of sterile saline and Bacitracin. This was done using a shower-tip pulsatile lavage. The posterior capsule repair was intact and quite stable. The patient's general body habitus and the appearance of the repair convinced me to leave the hip in its socket with the posterior capsule repair intact. The tensor and gluteal fascia was again repaired with interrupted #2 Ethibond. The wound was closed over a deep and superficial drain. Numerous interrupted Prolene stitches were used to close the skin in a [id number] fashion. A sterile bandage was applied. He was returned to the supine position, extubated and transported to the recovery room in stable condition. Blood loss was roughly 50 mL. At the end of the procedure, all needle and sponge counts were correct. Job#: [id number]
[2018-08-17] MEDS ORDERED: ACETAMINOPHEN 1000 MG/100 ML IV PRN (13:30)
--- NOTE | 2018-08-17 15:58 | NUR ---
CHAY ORDOÑEZ FROM [facility] CALLED AND STATED THIS IS THEIR PATIENT PHONE [phone] FAX [phone]. SHE STATES THEY WILL RESUME CARE UPON DISCHARGE ONCE ORDER IS FAXED FOR RE-INSTATEMENT.
--- NOTE | 2018-08-17 16:40 | NUR ---
CASE MANAGEMENT INITIAL ASSESSMENT Director Corporate Sales to bedside to discuss plan of care with patient/family. CM/SW role and care transitions discussed. Anticipated discharge plan discussed along with duration of care. CM/SW discussed patients right to make decisions in care. CM/SW work hours given. Patient lives: with Lily Admit/Transfer: from home Hospital/ER visits since last admit: recently discharged from this hospital July 26, 2018. Pt was recently at this facility for a hip replacement. Pt was sent to wound care clinic and wound vac was placed. Pt stated wound was continuously draining so Dr. Isidro told pt to come to hospital for I&D. POA/Emergency contact: Lily Galaviz [phone] Current/Previous Home Health: currently with [facility], would like to resume care with them on discharge. Choice letter signed and filed in chart. Copy to pt. PCP/Follow-up Care: Dr. Goldy Gil; Dr. Vo for ortho Current/Previous DME: has walker, electric scooter, rollator, travel wheelchair, cane, bathroom is remodeled to be wheelchair accessible if needed, raised toilet seat, shower bench; also has wound vac at home Medications (referring to index hospitalization or the first time you were in the hospital) a. Were changes made in your medications when you were in the hospital on [date of index hospitalization]? yes; abx b. Did you understand the changes? yes c. Were you able to obtain your new medications right away? yes d. Were you able to take your medications like the doctor wanted you to? yes e. Did the hospital give you an accurate, easy to understand list of medications when you left? yes Scale of 1-10 how comfortable does patient feel with disease management in outpatient settin Other Services: none Employment Status: retired Areas of Concerns: hip wound Referral Needs: home health, IV abx Education Needs: wound care, medical management IMM/VALENTIN given and signed (if applicable): none at this time Goal for discharge: home with home health CM/SW left business card at the bedside with contact information. Name and number was also written on the patients whiteboard. Patient verbalized understanding of discussion. CM will follow-up with ongoing discharge and transition of care needs.
[2018-08-17] MEDS ORDERED: VANCOMYCIN HCL 1.25 GM in SODIUM CHLORIDE 0.9% 250ML 300 ML IV SCH (16:45)
[2018-08-17] MEDS ORDERED: VANCOMYCIN HCL 1.25 GM in SODIUM CHLORIDE 0.9% 250ML 250 ML IV SCH (17:15)
[2018-08-17] MEDS: CEFEPIME 2 GM/NS 0.9% 100 ML 100 ML IV SCH (18:16)
--- NOTE | 2018-08-17 19:54 | Consultation ---
DATE OF CONSULTATION: REASON FOR CONSULTATION: Infection of the hip. HISTORY OF PRESENT ILLNESS: This patient, who is a very pleasant 87-year-old male with history of osteoarthritis, underwent hip replacement three weeks ago. The patient since then has been having some drainage from his wound. He has been seen by the wound care. He started to have pain in his knee. He went to see Dr. Isidro. It was felt that there is loosening of the hip. He was admitted because there was concern about infection. Underwent surgery today. Infectious disease was asked to see him. The patient was currently laying in bed comfortably. His is at the bedside. The patient on August 16 underwent irrigation and sharp debridement of left hip. Cultures were sent. PICC line was inserted. Infectious disease was asked to see to help with IV antibiotic, preferably at the house. Patient is currently laying in bed comfortably. PAST MEDICAL HISTORY: Osteoarthritis. PAST SURGICAL HISTORY: He had bilateral hip replacements, on the right several years ago and recently on the left. Also, total knee replacement. ALLERGIES: NKDA. SOCIAL HISTORY: There is no smoking, drug abuse, alcohol abuse. FAMILY HISTORY: Otherwise unremarkable. REVIEW OF SYSTEMS HEENT: There is no headache, visual changes, hearing changes. GI: There is no nausea, no vomiting, no diarrhea. CARDIAC: There is no arrhythmia. NEURO: No seizure activity. SKIN: There are no other rashes. IMPRESSION: Infected hip prosthesis removed. PLAN: Put him on vancomycin and cefepime. Await culture and sensitivity. Obtain sed rate, C-reactive protein, weekly CBC, and weekly chem panel. Will arrange outpatient antibiotic. Discussed with the patient, his , and with case management. Further recommendations to follow. Thank you so much for asking me to see this patient. Job#: [id number] NAYAN
[2018-08-17] MEDS: VANCOMYCIN HCL 1.25 GM in SODIUM CHLORIDE 0.9% 250ML 250 ML IV SCH (20:46)
[2018-08-18] VITALS: BP 115/55
[2018-08-18 01:04] VITALS: BP 115/55
[2018-08-18 04:00] VITALS: BP 121/58
[2018-08-18] MEDS: CEFEPIME 2 GM/NS 0.9% 100 ML 100 ML IV SCH (04:46)
--- NOTE | 2018-08-18 05:05 | Consultation ---
DATE OF CONSULTATION: REASON FOR CONSULTATION: Postop medical management. 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 REVIEW OF SYSTEMS: Denies any chest pain, fever, chills, nausea, vomiting, shortness of breath, or dizziness. PAST MEDICAL HISTORY: Significant for hypertension, anxiety and osteoarthritis. MEDICATIONS: See MAR. ALLERGIES: TORADOL, PENICILLIN. SOCIAL HISTORY: Nonsmoker and nondrinker. FAMILY HISTORY: Noncontributory. PHYSICAL EXAMINATION VITALS: 96.9, pulse 78, blood pressure 115/55, sats 93%. GENERAL: He is in no apparent distress. Lying in bed. LUNGS: Clear to auscultation bilaterally. NECK: Supple. No lymphadenopathy. CARDIOVASCULAR: Regular rate and rhythm. ABDOMEN: Good bowel sounds. Soft and nontender. EXTREMITIES: No clubbing or cyanosis. NEUROLOGIC: Nonfocal. ASSESSMENT AND PLAN 1. Anemia: Continue to monitor. 2. Anxiety: Continue his home medications. 3. Hypertension: Continue with his home medication. Monitor the blood pressure. 4. Left hip pain: Continue with current postoperative care. 5. Infected left total hip arthroplasty: Continue with care per infectious disease. Please see hospital chart for full details. Job#: [id number] [place]
[2018-08-18 05:29] LABS: HEMOGLOBIN 9.7 g/dL (14.0-18.0)
--- NOTE | 2018-08-18 07:04 | NUR ---
REPORT GIVEN TO ONCOMING NURSE.
[2018-08-18 07:55] VITALS: BP 148/72
[2018-08-18] MEDS ORDERED: AMLODIPINE BESYLATE 5 MG TAB PO SCH (09:00)
[2018-08-18] MEDS ORDERED: VENLAFAXINE HCL 75 MG CAPCR PO SCH (09:00)
[2018-08-18] MEDS: TUMERIC PO SCH (09:00)
[2018-08-18 10:05] VITALS: BP 114/56
[2018-08-18] MEDS: CELECOXIB 200 MG CAP PO SCH (10:05)
[2018-08-18] MEDS: FUROSEMIDE 20 MG TAB PO SCH (10:05)
[2018-08-18] MEDS: CLONAZEPAM 1 MG TAB PO SCH (10:05)
[2018-08-18] MEDS: OCUVITE PRESERVISION TABLET PO SCH (10:05)
[2018-08-18] MEDS: ASPIRIN 325 MG TAB PO SCH (10:05)
[2018-08-18] MEDS: VANCOMYCIN HCL 1.25 GM in SODIUM CHLORIDE 0.9% 250ML 250 ML IV SCH (10:05)
[2018-08-18] MEDS: MAGNESIUM HYDROXIDE 30 ML UDC PO SCH (10:05)
[2018-08-18] MEDS: PREGABALIN 50 MG CAP PO SCH (10:05)
[2018-08-18] MEDS: AMLODIPINE BESYLATE 5 MG TAB PO SCH (10:05)
[2018-08-18] MEDS: HYDROCODONE/APAP 7.5MG-325MG 1 EA TAB PO PRN (10:05)
[2018-08-18] MEDS: OYST-CAL-D 500MG TABLET PO SCH (10:05)
[2018-08-18] MEDS: VENLAFAXINE HCL 75 MG TAB PO SCH (10:05)
[2018-08-18 12:16] VITALS: BP 103/59
--- NOTE | 2018-08-18 13:11 | NUR ---
IMM letter delivered and explained to pt and his . They verbalized understanding. States they are ready to go home. Pt asked his to sign paperwork. Signed copy placed in chart. Copy to pt. IV abx currently in process of being arranged thru Dr. Le's office. Pt and stated MD has spoken to them about this and they are fine with that. Resumption order for home health faxed to [facility]. Spoke with Gisela and informed her that pt is discharging today. P [phone] F [phone]
--- NOTE | 2018-08-18 13:40 | NUR ---
Pt approved for IV abx at Dr. Le's office [address] [place] [address] Pt can come in tomorrow at 10:30am for his first appointment. Information given to pt and his .
[2018-08-18] MEDS ORDERED: TYLENOL WITH C1 EACH PO (15:07)
--- NOTE | 2018-08-18 15:56 | NUR ---
PT LEFT AT 1535.
== END 2018-08-18 15:36 | disposition home health service (06) | DRG 465 ==
LOC: OR 09:14 → PACU V 13:31 → MED/SURG 16:35
PROVIDERS: ADMIT Specialist; ATTEND Specialist
PROC: 02HV33Z Insertion of Infusion Device into Superior Vena Cava, Percutaneous Approach (ICD-10-PCS; 2018-08-16)
PROC: B548ZZA Ultrasonography of Superior Vena Cava, Guidance (ICD-10-PCS; 2018-08-16)
PROC: 0JBM0ZZ Excision of Left Upper Leg Subcutaneous Tissue and Fascia, Open Approach (ICD-10-PCS; principal; 2018-08-16 12:00)
DX: T84.52XA Infection and inflammatory reaction due to internal left hip prosthesis, initial encounter (principal); D64.9 Anemia, unspecified; F41.9 Anxiety disorder, unspecified; R53.81 Other malaise; Z88.0 Allergy status to penicillin; Z88.8 Allergy status to other drugs, medicaments and biological substances; I25.10 Atherosclerotic heart disease of native coronary artery without angina pectoris; I25.2 Old myocardial infarction; I50.9 Heart failure, unspecified; Z95.1 Presence of aortocoronary bypass graft; I11.0 Hypertensive heart disease with heart failure
CPT/HCPCS: 36415; 36569; 71045; 80048; 82565; 84520; 85014; 85018; 85025; 87071; 87075; 87205; 96365; J2001; J3370; J7030; J7050

== ENCOUNTER 2018-09-06 20:44 | Emergency (ER) | payer MEDICARE ==
[~2018-09-06] VITALS: Ht 177.8 cm; Wt 96.6 kg
[~2018-09-06 20:44] MED LIST changes: +TYLENOL WITH C1 EACH PO
--- NOTE | 2018-09-06 22:03 | Diagnostic Imaging Report ---
EXAMINATION: CHEST 2 VIEWS INDICATION: PICC line, possible blood clot in leg ^ORDER PLACED BY ^[id number] ^[id number] ^Y COMPARISON: Chest x-ray 08/16/2018 FINDINGS: PA and lateral views TUBES and LINES: Right PICC line terminates in the SVC. No pneumothorax. LUNGS: Low lung volumes. Patchy airspace opacities in the base of the left lung. No infiltrates in the right lung. Subcentimeter granuloma in the right midlung field is stable. No interstitial thickening. PLEURA: No large effusions. No pneumothorax HEART AND MEDIASTINUM: Stable mild cardiomegaly and postoperative changes. BONES AND SOFT TISSUES: Fusion hardware of the lower cervical spine are intact and stable. There are mild degenerative changes of the thoracic spine without compression deformity. Visualized median sternotomy wires are intact. Surgical anchor in the right humeral head is stable. Soft tissues are unremarkable. Upper abdomen is unremarkable. UPPER ABDOMEN: No free air under the diaphragm. IMPRESSION: Patchy left basilar airspace opacities are suggestive of atelectasis or infiltrate. Right PICC line in appropriate position. No pneumothorax. Signed by: Dr. Zac Mcdaniel MD on 09/06/2018 10:00 PM
--- NOTE | 2018-09-06 22:09 | Diagnostic Imaging Report ---
Tibia fibula right CPT code: 20571 Indication: Right lateral ankle pain radiating up to right hip, possible DVT Technique: AP and lateral views of the right tibia and fibula obtained. Comparison: None Findings: A total knee prosthesis is incompletely imaged. Visualized portions of the hardware are intact without surrounding lucency to suggest loosening. There is bony fusion of the proximal tibia and fibula. The tibia and fibula are intact. No focal osseous lesions. The ankle mortise is symmetric. There are mild degenerative changes of the tibiotalar joint. Well-corticated osseous structure inferior to the medial malleolus is suggestive of a healed avulsion fracture. Visualized portions of the midfoot demonstrate mild degenerative changes. The calcaneus is intact with tiny plantar posterior spurs. There are calcifications of the arterial structures of the lower extremity. An oval-shaped soft tissue calcification in the medial distal lower extremity measures 8 mm. A metallic curvilinear density in the plantar aspect of the midfoot measures 5 mm and is suggestive of a foreign body. This is approximately 6 mm deep to the skin surface. IMPRESSION: 1. No acute fracture or dislocation. Possible healed avulsion fracture of the medial malleolus. 2. Right knee prosthesis. 3. Linear radiopaque foreign body in the plantar soft tissues of the midfoot. 4. Atherosclerosis. Signed by: Dr. Zac Mcdaniel MD on 09/06/2018 10:06 PM
--- NOTE | 2018-09-06 22:13 | Diagnostic Imaging Report ---
Ankle complete CPT CODE: 10554 HISTORY: Right lateral ankle pain radiating to right hip TECHNIQUE: Three views right ankle obtained COMPARISON: None. FINDINGS: The distal tibia and fibula appear intact. Well-corticated osseous fragment inferior to the medial malleolus without associated soft tissue swelling. Ankle mortise remains symmetric. No tibiotalar effusion. Mild degenerative changes of the tibiotalar joint. The calcaneus appears intact with tiny posterior and plantar spurs. The visualized portions of the midfoot and forefoot are intact. There are mild degenerative changes of the midfoot. Curvilinear metallic foreign body in the plantar soft tissues of the midfoot measures 5 mm. There are calcifications of the arterial structures. An oval-shaped soft tissue calcification adjacent to the distal tibial diaphysis measures 8 mm. IMPRESSION: No evidence of acute fracture or dislocation involving the ankle. Suspected healed avulsion fracture of the medial malleolus. Linear radiopaque foreign body in the plantar soft tissues of the midfoot. Atherosclerosis. Degenerative changes as described above. Signed by: Dr. Zac Mcdaniel MD on 09/06/2018 10:09 PM
[2018-09-06 23:23] VITALS: BP 142/70
== END 2018-09-06 23:24 | disposition home or self-care (01) ==
LOC: ER 20:44
DX: M79.661 Pain in right lower leg (principal); M25.571 Pain in right ankle and joints of right foot; I10 Essential (primary) hypertension; I51.9 Heart disease, unspecified; I25.10 Atherosclerotic heart disease of native coronary artery without angina pectoris; I25.2 Old myocardial infarction
CPT/HCPCS: 71046; 93971; 99284

== ENCOUNTER 2018-12-08 11:01 | Emergency (ER) | payer MEDICARE ==
[~2018-12-08] VITALS: Ht 177.8 cm; Wt 96.6 kg
[2018-12-08] MEDS ORDERED: HYDROCODONE/APAP 7.5MG-325MG 1 EA TAB PO PRN (11:45)
--- NOTE | 2018-12-08 12:11 | Diagnostic Imaging Report ---
EXAMINATION: Head and cervical spine CT without contrast. HISTORY: Status post full, hit the head, trauma, pain COMPARISON: None. TECHNIQUE: Multidetector axial images were obtained with, without contrast from the foramen magnum to the vertex and through the cervical spine. The images were reconstructed using brain and bone algorithms. Thin section brain images were reformatted into coronal and sagittal planes. Dose modulation, iterative reconstruction, and/or weight based adjustment of the mA/kV was utilized to reduce the radiation dose to as low as reasonably achievable. HEAD CT FINDINGS: Skull/difficult/: No lytic or blastic lesions. No fractures. Parenchyma: Focal ill-defined hypodensity in the right medial thalamus may correspond to an age indeterminate ischemic infarct. Mild scatter and periventricular white matter hypodensities, most likely nonspecific chronic microvascular ischemic changes. No mass, hemorrhage or CT evidence of acute vascular insult. Brain volume: Normal for age. Ventricles: No hydrocephalus or displacement. Arteries: No density suggestive of thrombus. Dural sinuses: No abnormal density. Extra-axial spaces: No abnormal density. Foramen magnum: No mass, Chiari malformation, or basilar invagination. Sella: No obvious mass. Paranasal/mastoid sinuses: Imaged portions unremarkable. CERVICAL SPINE CT FINDINGS: Alignment:Normal alignment and lordosis. Soft tissues: Calcified atherosclerotic changes of the bilateral retropharyngeal ICAs.. Vertebrae: Status post ACDF with solid interbody fusion from C4 to C7, anterior plate and screws at C6-7. Right posterior interlaminar epidural catheter entering through C7-T1, with cephalic direction, prominent streak artifact limits evaluation after to the level of C5. Degenerative changes: C1-C2: Prominent degenerative changes without stenoses. C2-C3: Prominent facet arthrosis minimally on the right. Moderate right and mild left foraminal stenosis. C3-C4: Disc osteophyte compresses remission, bilateral uncovertebral and facet arthrosis. Mild spinal canal and severe bilateral foraminal stenosis. C4-C7: Surgical levels with solid interbody fusion and right laminotomies and partial facetectomies. Severe foraminal narrowing on the left at C5-C6 and C6-7. IMPRESSION: Head CT: 1. No acute post traumatic intracranial hemorrhage 2. 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 3. Mild chronic microvascular ischemic changes Cervical spine CT: 1. No acute fractures or dislocations. 2. Chronic degenerative changes as described. 3. Postoperative changes as detailed above Note: Acute post traumatic spinal cord, vascular or ligamentous injury cannot adequately be assessed with CT. Signed by: Dr. Tiki Burrows M.D. on 12/08/2018 12:08 PM
--- NOTE | 2018-12-08 12:28 | Diagnostic Imaging Report ---
Radiographs of the right shoulder - 2 views HISTORY: Pain COMPARISON: None available. FINDINGS: Bones: No acute displaced fracture. Osseous alignment is within normal limits. Joints: Scattered degenerative change. No osseous erosion. Soft tissues: The soft tissues appear unremarkable. IMPRESSION: Scattered degenerative change. No osseous erosion. Signed by: Dr. Rob Duffy M.D. on 12/08/2018 12:25 PM
--- NOTE | 2018-12-08 12:29 | Diagnostic Imaging Report ---
Radiographs of the left shoulder - 2 views HISTORY: Pain COMPARISON: None available. FINDINGS: Bones: No acute displaced fracture. The left acromioclavicular distance is widened which could be due to prior surgery or traumatic injury. Correlate for point tenderness. Joints: Scattered degenerative change. No osseous erosion. Soft tissues: The soft tissues appear unremarkable. IMPRESSION: The left acromioclavicular distance is widened which could be due to prior surgery or traumatic injury. Correlate for point tenderness. Scattered degenerative change. No osseous erosion. Signed by: Dr. Rob Duffy M.D. on 12/08/2018 12:26 PM
--- NOTE | 2018-12-08 12:53 | Diagnostic Imaging Report ---
EXAMINATION: CHEST SINGLE (NOT PORTABLE) INDICATION: Status post fall. COMPARISON: Chest radiograph 09/06/2018. FINDINGS: Somewhat limited portable examination. TUBES and LINES: Interval removal of right PICC. LUNGS: Low lung volumes which decreases sensitivity and specificity for pathology. Patchy bibasilar opacities, likely atelectasis. No evidence of lobar pneumonia or pulmonary edema. Calcified granuloma in the right midlung. PLEURA: No pleural effusion or pneumothorax. HEART AND MEDIASTINUM: The cardiomediastinal silhouette is unremarkable. Status post CABG. BONES AND SOFT TISSUES: No acute osseous abnormality. Status post median sternotomy. The superior and inferior most median sternotomy wires are fractured, unchanged. Partially seen cervical spine fixation hardware. UPPER ABDOMEN: No free air under the diaphragm. IMPRESSION: No acute radiographic abnormality. Signed by: Dr. Nemo Alaniz MD on 12/08/2018 12:50 PM
[2018-12-08 13:05] VITALS: BP 145/78
--- NOTE | 2018-12-08 13:08 | Diagnostic Imaging Report ---
Exam: Pelvic radiographs-3 views History: Status post fall. Comparison: None. Findings: No evidence of acute fracture or malalignment. Status post bilateral total hip arthroplasty. Hardware appears intact. There is heterotopic ossification in the right proximal femur. Atherosclerotic vascular calcifications. Impression: No acute radiographic abnormality. Signed by: Dr. Nemo Alaniz MD on 12/08/2018 1:04 PM
== END 2018-12-08 14:09 | disposition home or self-care (01) ==
LOC: ER 11:01
DX: S46.011A Strain of muscle(s) and tendon(s) of the rotator cuff of right shoulder, initial encounter (principal); W01.0XXA Fall on same level from slipping, tripping and stumbling without subsequent striking against object, initial encounter; Y93.89 Activity, other specified
CPT/HCPCS: 70450; 71045; 72125; 72170; 99284